=== PATIENT | female | born 1965 | race Hispanic/Latino ===

== ENCOUNTER → 2018-08-05 | Outpatient (CLI) | payer OTHER | END | disposition home or self-care (01) | LOC: SHCH 14:34 | PROVIDERS: ATTEND Internal Medicine Cardiovascular Disease | DX: I10 Essential (primary) hypertension (principal); R07.9 Chest pain, unspecified; R00.2 Palpitations; R06.00 Dyspnea, unspecified | CPT/HCPCS: 93306 ==